=== PATIENT | female | born 1960 | race Caucasian/White ===

== ENCOUNTER 2023-11-15 13:43 | Emergency (ER) | payer MEDICARE, SELFPAY ==
[2023-11-15 15:00] VITALS: BP 163/82; PULSE 59; RESP 21; TEMP 36.9; O2SAT 98; BMI 23.6
--- NOTE | 2023-11-15 15:24 | EXP.UTC ---
Discharge Plan Disposition Patient Disposition: Home, Self-Care Condition: Good Prescriptions Prescriptions: New azithromycin [Zithromax Z-Salazar] 250 mg tablet See Rx Instructions .ROUTE .COMPLEX 5 Days Qty: 6 0RF Rx Instructions: For 250 mg dose pack: take 500 mg today (day 1), then 250 mg for 4 days (days 2-5) ondansetron 4 mg tablet,disintegrating 4 mg PO Q8H PRN (Reason: nausea and vomiting) Qty: 10 0RF guaifenesin [Mucinex] 600 mg tablet extended release 12hr 600 mg PO BID PRN (Reason: cough) Qty: 20 0RF Referrals Follow up/Referrals: Provider,Referral, MD [Primary Care Provider] - See instructions Activity Restrictions/Add. Instructions Additional Instructions/Restrictions: Drink extra fluids with and between meals. If you have difficulty drinking, try very small amounts of water or suck on ice chips. ? Avoid fruit juices, as these do not replace minerals and can actually increase diarrhea. ? Children and adults can use sports drinks to replenish electrolytes. Younger children and infants should use products formulated for children, like oral rehydration solutions. ? Eat food in small amounts and let your stomach recover. ? Get lots of rest. You may feel tired or weak. ? No greasy or fried foods for the next 24-48 hours BRAT diet Bananas Rice Apples and [place] ? Make sure to drink plenty of liquids ? Return if needed ? Straight to ER if any life threatening symptoms ? Zofran as prescribed ? Follow up with family doctor in the next 48-72 hours if no improvement or any worsening of symptoms Clinical Impressions Clinical Impression: Sinusitis Qualifiers: Sinusitis location: unspecified location Chronicity: unspecified Qualified Code(s): J32.9 - Chronic sinusitis, unspecified Instructions Patient Instructions: DI for Sinusitis, Sinusitis, Ondansetron Discharge ED Provider: Selma Carrero [facility] General Stated complaint: vomiting, diarrhea Mode of Arrival: Ambulatory Source of Information: Patient and Relative Limitations: No Limitations Time Seen by Provider: 11/15/23 15:24 Description of Symptoms (Recalled from Triage Doc. by RN): PATIENT REPORTS SHE WAS IN ER IN [place] ON 11/10/23 WITH A HEADACHE, VOMITING, DIARRHEA AND WEAKNESS, AND SHE WAS DIAGNOSED WITH FLU H1N1. SHE STATES SHE CONTINUES TO HAVE WEAKNESS AND DECREASED PO INTAKE. SHE C/O HEART PALPATATIONS AND SOA WITH EXERTION. SHE REPORTS SHE HAS A FOLLOW-UP APPOINTMENT WITH HER PCP ON 12/06 BUT DOESN'T FEEL SHE CAN WAIT THAT LONG HEENT Symptoms (Recalled from RN notes): No Resp Symptoms (Recalled from RN notes): No Skin Symptoms (Recalled from RN notes): No MS Symptoms (Recalled from RN notes): No Functional Status (Recalled from RN notes): WNL History of Present Illness Provider Complaint: Patient states that she went into [facility] ED on Nov 10 for headache felt like her heart was racing when she would get up and move around and they did a CT and it was clear and dx her with H1N1 influenza States that today she was still not feeling any better, states that now she thinks she may have bad sinus infection because everything is smelling bad and tasting bad and she has been having nausea and diarrhea States that also she wanted to get something to help with the nausea and some cough medication to help with her cough States that she was worried that she may get dehydrated if she didnt drink more but not able to drink much due to the nausea so she came in Related Data Previous Rx's Medication Instructions Recorded azithromycin 250 mg tablet See Rx Instructions PO .COMPLEX 5 11/15/23 (Zithromax Z-Salazar) days #6 tabs guaifenesin 600 mg tablet, 600 mg PO BID PRN cough #20 tabs 11/15/23 extended release 12 hr (Mucinex) ondansetron 4 mg disintegrating 4 mg PO Q8H PRN nausea and 11/15/23 tablet vomiting #10 tabs Allergies Allergy/AdvReac Type Severity Reaction Status Date / Time bupropion [From Wellbutrin] Allergy Verified 11/15/23 15:18 Sulfa (Sulfonamide Allergy Verified 11/15/23 15:18 Antibiotics) sulfamethoxazole Allergy Verified 11/15/23 15:18 [From Septra] trimethoprim [From Septra] Allergy Verified 11/15/23 15:18 Worker's Comp Is this a Worker's Comp case?: No [facility] Disclaimer: The information contained in this section may have been updated after the patient was seen, as this information can be updated by other users. Medical History (Updated 11/15/23 @ 16:31 by Selma Carrero APRN) Anxiety Depression Hypertension Migraine Surgical History (Updated 11/15/23 @ 15:19 by Amy Acosta RN) History of section History of hysterectomy History of tubal ligation Social History Smoking Status: Unknown if ever smoked alcohol intake: never current occupational status: unemployed Travel in the last 8 weeks: None ROS Obtained: Yes All systems reviewed & no additional complaints except as documented and Yes Systems reviewed as appropriate & no additional complaints except as documented Constitutional Constitutional: Reports system reviewed and no additional complaints, except as documented, Reports as per HPI, Reports body ache, Denies chills, Denies fever(s) and Denies headache(s) ENT Ears, Nose, Mouth, and Throat: Reports system reviewed and no additional complaints, except as documented, Reports as per HPI, Denies headache(s), Reports sinus pain and Reports sinus pressure Cardiovascular Cardiovascular: Reports system reviewed and no additional complaints, except as documented, Reports as per HPI, Denies chest pain, Denies dyspnea, Denies edema and Denies palpitations Respiratory Respiratory: Reports system reviewed and no additional complaints, except as documented, Reports as per HPI, Reports cough and Denies dyspnea Gastrointestinal Gastrointestingal: Reports system reviewed and no additional complaints, except as documented, as per HPI, diarrhea, nausea and vomiting Musculoskeletal Musculoskeletal: Reports system reviewed and no additional complaints, except as documented and Reports as per HPI Neurologic Neurologic: Denies headache(s) Endocrine Endocrine: Denies palpitations Physical Exam General General appearance: alert and in no apparent distress ENT ENT exam: Present mucous membranes moist Expanded ENT Exam Nose exam: Present sinus tenderness Respiratory Respiratory exam: Present normal lung sounds bilaterally; Absent respiratory distress or wheezes Cardiovascular Cardiovascular exam: Present regular rate, normal rhythm and normal heart sounds Abdominal Exam Abdominal exam: Present soft and normal bowel sounds; Absent distention or tenderness Neurological Exam Neurological exam: Present alert, oriented X3 and normal gait Medical Decision Making Bernard Inquiry Pt receiving controlled substance: No Bernard was queried for this patient: No Vital Signs: 11/15/23 15:00 Temperature 98.4 F Temperature Source Oral Pulse Rate [Right Brachial] 59 L Respiratory Rate 21 Blood Pressure [Right Arm] 163/82 H Blood Pressure Mean [Right Arm] 109 Blood Pressure Source [Right Arm] Automatic Cuff Blood Pressure Position [Right Arm] Sitting 02 Sat by Pulse Oximetry 98 Oxygen Delivery Method Room Air Medical Decision Narrative: Discussed with patient about transfer to the ED for more extensive work up and evaluation and patient declined discussed IV bolus and something for nausea and she agreed Medication discussed with pharmacy Iv bolus complete patient states that she feels much better
[2023-11-15] MEDS: SODIUM CHLORIDE 0.9% 500ML BAG 500 ML IV (15:45)
[2023-11-15 16:16] VITALS: BP 163/82; PULSE 59; RESP 21; TEMP 36.9; O2SAT 98
[2023-11-15] MEDS: ONDANSETRON 4MG ODT 4 MG SL (16:39)
== END 2023-11-15 16:39 | disposition home or self-care (01) ==
PROVIDERS: Emergency Provider Nurse Practitioner
DX: J01.90 Acute sinusitis, unspecified (principal); R06.02 Shortness of breath; R00.2 Palpitations; R11.0 Nausea; R19.7 Diarrhea, unspecified; I10 Essential (primary) hypertension
CPT/HCPCS: 99204; 99212; G0463